=== PATIENT | male | born 1950 | race Caucasian/White ===

== ENCOUNTER 2016-11-04 12:10 | Day surgery (SDC) | payer OTHER ==
[~2016-11-04] VITALS: Ht 167.6 cm; Wt 86.9 kg
[2016-11-04 12:40] VITALS: Ht 167.6 cm; Wt 86.9 kg
[2016-11-04] MEDS ORDERED: LEVO25TA53 PO (12:55)
[2016-11-04 13:43] VITALS: BP 148/74; PULSE 62; RESP 13
[2016-11-04] MEDS ORDERED: PROPOFOL 40 ML ONE (14:11)
[2016-11-04 14:37] VITALS: BP 105/73; PULSE 60; RESP 12
--- NOTE | 2016-11-04 14:44 | GILP ---
DATE OF PROCEDURE: NAME OF PROCEDURE: Colonoscopy and biopsy. SURGEON: Maddi Ellis MD PREOPERATIVE DIAGNOSES: History of colon polyps. POSTOPERATIVE DIAGNOSES: 1. Colonoscopy all the way to the cecum. 2. Prominent sigmoid fold and biopsies were taken for histopathology. 3. No colon neoplasm was identified. 4. Internal hemorrhoids. INDICATION FOR THE PROCEDURE: Mr. Collin Diaz is a 66-year-old male patient who had his last colonoscopy more than 5 years ago and at that time large colon polyps were removed, so the patient w as scheduled for a followup colonoscopy. The procedure and possible complications were well explained to the patient. He understood and cons ented to the procedure. DESCRIPTION OF PROCEDURE: Under the influence of anesthesia, the colonoscope was carefully introduc ed in the rectum and under direct vision it was advanced all the way to the cecum. FINDINGS: The patient had a prominent sigmoid fold and biopsies were taken for histopathology. The patient was noted to have internal hemorrhoids. No colon neoplasm was identified. He tolerated the procedure very well and there was no complication from the procedure. At the end o f the procedure he was awake with stable vital signs and he was discharged home to the care of his [facility]. IMPRESSION: 1. Colonoscopy all the way to the cecum. 2. Prominent sigmoid fold and biopsies were taken for histopathology. 3. Internal hemorrhoids. 4. No colon neoplasm was identified. PLAN: 1. Await histopathology report. 2. Next screening colonoscopy in 10 years. Dictated By: MADDI MORALES/COSMO Conf#: [id number] DID#: [id number]
== END 2016-11-04 17:31 | disposition home or self-care (01) ==
LOC: GIL 12:10
PROVIDERS: ATTEND Internal Medicine Gastroenterology
DX: Z86.010 Personal history of colon polyps (principal); K64.8 Other hemorrhoids; E03.9 Hypothyroidism, unspecified
CPT/HCPCS: 45380; 88305; Z7610